=== PATIENT | male | born 1970 | race Two or more races ===

== ENCOUNTER → 2021-03-26 | Outpatient (CLI) | payer OTHER | END | disposition home or self-care (01) | LOC: PPH VACUNA | DX: Z23 Encounter for immunization (principal) ==

== ENCOUNTER 2021-04-11 13:35 | Emergency (ER) | payer OTHER ==
[~2021-04-11] VITALS: Ht 182.9 cm; Wt 81.6 kg
== END 2021-04-11 16:11 | disposition home or self-care (01) ==
LOC: EMR PED 13:35 → ER 13:55
DX: B34.9 Viral infection, unspecified (principal); Z11.52 Encounter for screening for COVID-19

== ENCOUNTER 2022-04-13 16:04 | Emergency (ER) | payer OTHER ==
[~2022-04-13] VITALS: Ht 182.9 cm; Wt 95.3 kg
== END 2022-04-13 19:08 | disposition home or self-care (01) ==
LOC: ER 16:04
DX: B34.9 Viral infection, unspecified (principal); Z91.013 Allergy to seafood

== ENCOUNTER → 2022-05-22 | Emergency (ER) | payer OTHER ==
[~2022-05-22] VITALS: Ht 185.4 cm; Wt 99.8 kg
== END | disposition left against medical advice (07) ==
LOC: ER 18:47
DX: Z53.21 Procedure and treatment not carried out due to patient leaving prior to being seen by health care provider (principal)

== ENCOUNTER 2022-06-06 11:46 | Emergency (ER) | payer OTHER ==
[~2022-06-06] VITALS: Ht 188 cm; Wt 99.8 kg
== END 2022-06-06 18:48 | disposition home or self-care (01) ==
LOC: ER 11:46
DX: F10.229 Alcohol dependence with intoxication, unspecified (principal); Z91.013 Allergy to seafood; I10 Essential (primary) hypertension; F12.10 Cannabis abuse, uncomplicated